=== PATIENT | female | born 1990 | race Hispanic/Latino ===

== ENCOUNTER 2018-02-19 10:32 | Outpatient (CLI) | payer OTHER ==
--- NOTE | 2018-02-19 13:41 | ULT ---
OBSTETRIC SONOGRAM: History: Size and dates. 2nd trimester gestation. FINDINGS: Multiple transabdominal sonographic views of the gravid uterus show a single intrauterine gestation i n cephalic presentation. Cervix is closed and 4.0 cm. Amniotic fluid is within normal limits. Grade I I placenta is posterior and fundal. No gross intracranial abnormalities are demonstrated. Four chambe r heart shows motion at 144 beats/minute. spine and kidneys are intact as visualized. Three ves kimberley cord shows a normal insertion. Measurements are as follows: BPD 21 weeks 3 days HC 21 weeks 4 days AC 21 weeks 6 days FL 20 weeks 4 days Estimated date of delivery based on today's sonogram is 06-29-18. IMPRESSION: 1. Single viable intrauterine gestation with estimated gestational age based on today's sonogram of 2 1 weeks 3 days. 2. Placental lakes. Placenta is somewhat mature for gestational age. POS: [facility]
== END 2018-02-19 10:33 | disposition home or self-care (01) ==
LOC: BICULT 10:32
PROVIDERS: ATTEND Family Medicine
DX: Z34.82 Encounter for supervision of other normal pregnancy, second trimester (principal)
CPT/HCPCS: 76805

== ENCOUNTER 2018-06-18 22:17 | Inpatient (IN) | payer MEDICAID, OTHER, SELFPAY ==
[2018-06-18 22:54] VITALS: BMI 26.2
--- NOTE | 2018-06-18 23:19 | PDOC.LDHP ---
Labor and Delivery H&P HPI: Patient of Dr escobar Time: 2316 Location : L&D Triage Here for irreg ctx HPI: 28 yo x 1 at 38 weeks, here for irregular CTX, no VB, no LOF. Good FM. Review of Systems: complete ROS completed and as per HPI Current gestational age (weeks): 38 Due date: 06/27/18 Dating criteria: last menstrual period Grav: 2 Para: 1 OB History Details: HX PPH with last delivery Current complications: none Abnormal US findings: No Current medications: pre- vitamins Previous surgical history: none Allergies/Adverse Reactions: Allergies Allergy/AdvReac Type Severity Reaction Status Date / Time No Known Allergies Allergy Verified 06/18/18 23:07 - Physical Exam Vital signs reviewed and normal: yes (104/68 73 20 afebrile) General: NAD Heart: RRR Lungs: CTAB Abdomen: gravid Extremeties: no edema FHT: category 1 [place] contractions every: every 3-6 minutes - Vaginal Exam cm dilated: 1 (to 2) Effacement: 50% Station: -2 - Assessment Latent labor at earlt term. GBS neg. 1-2cm - Plan Plan: observation in L&D (CX only 1-2cm. We will obs for 2 hours and recheck then.)
[2018-06-19] MEDS ORDERED: Ibuprofen 800 MG TAB PO PRN (00:55)
[2018-06-19] MEDS ORDERED: Promethazine HCl 25 MG/ML VIAL IM PRN (00:55)
[2018-06-19] MEDS ORDERED: NS / Oxytocin 40 units/1000ml 1,000 ML IV PRN (00:55)
[2018-06-19] MEDS ORDERED: HYDROcodone/Acetaminophen 5/325 mg Tablet PO PRN ×2 (00:55)
[2018-06-19] MEDS ORDERED: Lidocaine 1% (PF) 30 ML VIAL SC PRN (00:55)
[2018-06-19] MEDS ORDERED: Butorphanol Tartrate 1 MG/ML VIAL SLOW IVP PRN (00:55)
--- NOTE | 2018-06-19 00:58 | PDOC.EVN ---
Event Note - Event Note Event Note: Follow up: cervix now 4cm...admit.
[2018-06-19] MEDS: Lactated Ringer's 1,000 ML IV SCH ×2 (01:25→09:48)
[2018-06-19 01:44] LABS: Hemoglobin 10.6 g/dL (12.0-16.0); Mean Corpuscular HGB CONC 33.9 g/dL (32.0-36.0); Mean Corpuscular Hemoglobin 27.8 pg (27.0-31.0); Mean Platelet Volume 7.5 fL (7.4-10.4); Platelet Count 352 thou/uL (130-400); RBC Distribution Width 12.1 % (11.5-14.5); Red Blood Cell (RBC) Count 3.83 mill/uL (4.20-5.40); White Blood Cell (WBC) Count 15.5 thou/uL (4.8-10.8)
[2018-06-19] MEDS ORDERED: Acetaminophen 500 MG TAB PO SCH (02:15)
[2018-06-19 02:21] LABS: HBSAg Index 0.27 S/CO (0-0.99); HIV (1/2) Antibody/Antigen Non-Reactive (NonReactive); Hep B Surf Ag Non-Reactive S/CO (NonReactive)
--- NOTE | 2018-06-19 02:40 | PDOC.EVN ---
Event Note - Event Note Event Note: Patient's chat not here. The [employer] card GBS area is blanl...but patient states it was "negative". Also, no clinical risk factors for GBS. OK to not use GBS coverage based on her verbal report.
[2018-06-19 04:50] LABS: Syphilis Antibody Nonreactive (Nonreactive); Syphilis Antibody Index 0.03 S/CO (<1.00 Non-Reactive)
--- NOTE | 2018-06-19 06:39 | PDOC.EVN ---
Event Note - Event Note Event Note: Exam performed at bedside: /+1/Cephalic/BOWI Declines epidural
[2018-06-19] MEDS ORDERED: NS / Oxytocin 40 units/1000ml 1,000 ML ONE (06:49)
[2018-06-19] MEDS ORDERED: Lidocaine 1% (PF) 30 ML VIAL ONE (06:49)
--- NOTE | 2018-06-19 09:24 | PDOC.EVN ---
Event Note - Event Note Event Note: Received report from Dr. Stephens. in labor at term. SVE= 7-8/c/0 vtx. AROM clear. FHTs stable. UCs q 2-4 mins. Plan: Watch progress, expect .
--- NOTE | 2018-06-19 11:07 | PDOC.EVN ---
Event Note - Event Note Event Note: SVE per labor RN is unchanged. FHTs stable. UCs q 2-4 min. Refuses epidural. POlan: Start pitocin augmentation.
[2018-06-19] MEDS ORDERED: NS w/ Oxytocin 10 units 500 ML ONE (11:08)
[2018-06-19] MEDS ORDERED: NS w/ Oxytocin 10 units 500 ML IV SCH (11:15)
--- NOTE | 2018-06-19 13:34 | PDOC.OPDEL ---
OB Operative/Delivery Note Delivery Dr/Surgeon: Bobo Assist: Scooby Pre-Delivery Diagnosis: active labor Procedure/Post Delivery Dx: spontaneous vaginal delivery Weeks gestation: 38 Anesthesia: local - Additional Findings/Plan Placenta delivered: spontaneous Repaired Obstetrical Laceration: 2nd degree Estimated blood loss: 300, QBL pending Compilations/Other Findings: Terminal bradycardia, small 2* MLE performed to expedite delivery. Viable male, Apgars 8/9. MLE repaired in layers with 2-0 chromic in layers. To recover in LDR. Post delivery plan: routine recovery
[2018-06-19] MEDS ORDERED: Zolpidem Tartrate 5 MG TAB PO PRN (15:45)
[2018-06-19] MEDS ORDERED: Lanolin Ointment 7 GM TUBE TOP PRN (15:45)
[2018-06-19] MEDS ORDERED: Bisacodyl 10 MG SUPP PR PRN (15:45)
[2018-06-19] MEDS ORDERED: NS / Oxytocin 40 units/1000ml 1,000 ML IV SCH (15:45)
[2018-06-19] MEDS ORDERED: diphenhydrAMINE 25 MG CAP PO PRN (15:45)
[2018-06-19] MEDS ORDERED: Milk Of Magnesia 30 ML UDCUP PO PRN (15:45)
[2018-06-19] MEDS ORDERED: Ondansetron PF 4 MG/2 ML Vial IVP PRN (15:45)
[2018-06-19] MEDS ORDERED: Adacel (T-DAP) 0.5 ML SYRINGE IM ONE (15:45)
[2018-06-19] MEDS ORDERED: Preparation H Ointment 28 GM TUBE PR PRN (15:45)
[2018-06-19] MEDS: Ibuprofen 800 MG TAB PO SCH ×2 (19:39→21:48)
[2018-06-19] MEDS: Ferrous Sulfate 325 MG TAB PO SCH (19:40)
[2018-06-19] MEDS: Docusate Calcium (SURFAK) 240 MG CAP PO SCH (21:48)
--- NOTE | 2018-06-20 01:19 | PDOC.PP ---
Post Progress Note Post Day #: PPD#1 Subjective: Resting, no complaints. PO intake tolerated: yes Ambulation: yes Vital Signs (12 hours) Temp Pulse Resp BP Pulse Ox 06/19/18 23:45 98.0 F 71 16 90/52 L 06/19/18 20:00 97.7 F 68 16 99/56 L 98 06/19/18 18:01 98.1 F 70 16 103/58 L 06/19/18 17:00 65 16 106/54 L 06/19/18 15:55 97.8 F 70 18 110/59 L 99 Weight Weight 69.4 kg - Physical Examination General: NAD Respiratory: non-labored breathing Psychiatric: normal affect Result Diagrams: 06/19/18 01:28 Additional Labs: Post Labs Blood Type O POSITIVE 06/19/18 02:34 Hep Bs Antigen Non-Reactive S/CO (NonReactive) 06/19/18 01:28 - Assessment/Plan Doing well s/p with MLE. Routine PP care.
[2018-06-20] MEDS: Ibuprofen 800 MG TAB PO SCH ×2 (05:48→13:00)
[2018-06-20 06:24] LABS: Hemoglobin 9.1 g/dL (12.0-16.0); Mean Corpuscular HGB CONC 32.4 g/dL (32.0-36.0); Mean Corpuscular Hemoglobin 26.9 pg (27.0-31.0); Mean Corpuscular Volume 82.9 fL (78.0-98.0); Mean Platelet Volume 7.5 fL (7.4-10.4); Platelet Count 333 thou/uL (130-400); RBC Distribution Width 12.2 % (11.5-14.5); Red Blood Cell (RBC) Count 3.37 mill/uL (4.20-5.40); White Blood Cell (WBC) Count 17.1 thou/uL (4.8-10.8)
[2018-06-20 08:01] VITALS: TEMP 97.8
[2018-06-20] MEDS ORDERED: Prenatal Vitamin 1 TAB PO SCH ×2 (09:00)
[2018-06-20] MEDS: Ferrous Sulfate 325 MG TAB PO SCH (09:23)
[2018-06-20] MEDS: Docusate Calcium (SURFAK) 240 MG CAP PO SCH (09:24)
--- NOTE | 2018-06-20 12:25 | PDOC.EVN ---
Event Note - Event Note Event Note: DISCHARGE NOTE: DX: S/P vaginal Delivery, multigravida Patient desires home today. Cleared for DC home earlier today by Dr Broussard. I have reviewed vitals as well. BPs low but no change from prior, pulse is 60- 70s HCT 31 to 28 No active VB OK for 1500 DC to home
[2018-06-20 16:06] VITALS: BP 95/60
== END 2018-06-20 18:01 | disposition home or self-care (01) | DRG 807 ==
LOC: L&D/OP 22:17 → L&D 06-19 01:13 → 3SE 06-19 16:47
PROVIDERS: ADMIT Obstetrics & Gynecology; ATTEND Obstetrics & Gynecology
PROC: 10E0XZZ Delivery of Products of Conception, External Approach (ICD-10-PCS; principal; 2018-06-19)
PROC: 0KQM0ZZ Repair Perineum Muscle, Open Approach (ICD-10-PCS; 2018-06-19)
PROC: 0W8NXZZ Division of Female Perineum, External Approach (ICD-10-PCS; 2018-06-19)
DX: O70.1 Second degree perineal laceration during delivery (principal); Z37.0 Single live birth; Z3A.38 38 weeks gestation of pregnancy; O99.89 Other specified diseases and conditions complicating pregnancy, childbirth and the puerperium; R00.1 Bradycardia, unspecified
CPT/HCPCS: 36415; 85027; 86780; 86850; 86900; 86901; 87340; 87389; 90715; 99285; J2001

== ENCOUNTER 2019-09-18 08:07 | Outpatient (CLI) | payer OTHER ==
--- NOTE | 2019-09-18 09:48 | ULT ---
LEFT BREAST ULTRASOUND: HISTORY: The patient reports left breast pain, occasionally a vague palpable area at approximately the 3 o'lydia ck position. FINDINGS: Real-time imaging of all the quadrants of the breast were obtained and graphic art sales representative images obtained . No suspicious mass is seen. No fluid collections. IMPRESSION: Unremarkable left breast ultrasound. POS: [facility]
== END 2019-09-18 08:08 | disposition home or self-care (01) ==
LOC: BICULT 08:07
PROVIDERS: ATTEND Nurse Practitioner Women's Health
DX: N64.4 Mastodynia (principal)